=== PATIENT | male | born 1990 | race African-American/Black ===

== ENCOUNTER 2022-03-01 13:32 | Emergency (ER) | payer OTHER ==
[2022-03-01] MEDS ORDERED: TRIA15OI9 TP (14:43)
[2022-03-01] MEDS ORDERED: KETO120S4 TP (14:43)
--- NOTE | 2022-03-01 14:44 | PHYS DOC ---
General Adult EDM: Chief Complaint: SKIN RASH/ABSCESS HPI: HPI: 31-year-old male presents with rash. The patient has a rash on his bilateral lateral buttocks, abdomen, bilateral legs. He states it seems to be increasing over the last few days. It is pruritic. It is mostly flat and with darker pigmented. There are times when it is slightly raised and seems to have a pinkish border. Patient denies fever or chills. He has no idea what is causing it. Denies recent unusual exposures. Patient does have eczema at baseline and is out of his triamcinolone topical cream. He has not had a rash like this before. Review of Systems: Review of Systems: Constitutional: Denies fever or chills Eyes: Denies change in visual acuity HENT: Denies nasal congestion or sore throat Respiratory: Denies cough or shortness of breath Cardiovascular: Denies chest pain or edema GI: Denies abdominal pain, nausea, vomiting, bloody stools or diarrhea : Denies dysuria Musculoskeletal: Denies back pain or joint pain Integument: Rash Neurologic: Denies headache, focal weakness or sensory changes Endocrine: Denies polyuria or polydipsia Lymphatic: Denies swollen glands Psychiatric: Denies depression or anxiety Physical Exam: PE: Constitutional: Well developed, well nourished, no acute distress, non-toxic appearance. [] HENT: Normocephalic, atraumatic, bilateral external ears normal, oropharynx moist, no oral exudates, nose normal. [] Eyes: PERRLA, EOMI, conjunctiva normal, no discharge. [] Neck: Normal range of motion, no tenderness, supple, no stridor. [] Cardiovascular:Heart rate regular rhythm, no murmur [] Lungs & Thorax: Bilateral breath sounds clear to auscultation [] Abdomen: Bowel sounds normal, soft, no tenderness, no masses, no pulsatile masses. [] Skin: Warm, dry, many coalescing macules, darker pigmented, flat of the anterior trunk, bilateral lower extremities, bilateral buttocks. [] Back: No tenderness, no CVA tenderness. [] Extremities: No tenderness, no cyanosis, no clubbing, ROM intact, no edema. [] Neurologic: Alert and oriented X 3, normal motor function, normal sensory function, no focal deficits noted. [] Psychologic: Affect normal, judgement normal, mood normal. [] EKG: EKG: [] Radiology/Procedures: Radiology/Procedures: [] Heart Score: C/O Chest Pain: N/A Risk Factors: Risk Factors: DM, Current or recent (<one month) smoker, HTN, HLP, family history of CAD, obesity. Risk Scores: Score 0 - 3: 2.5% MACE over next 6 weeks - Discharge Home Score 4 - 6: 20.3% MACE over next 6 weeks - Admit for Clinical Observation Score 7 - 10: 72.7% MACE over next 6 weeks - Early Invasive Strategies Course & Med Decision Making: Course & Med Decision Making Pertinent Labs and Imaging studies reviewed. (See chart for details) The patient's exam is consistent with tinea versicolor. I will treat him with ketoconazole shampoo which he will use 3 consecutive days. I will also refill his triamcinolone cream for his eczema. He is stable for discharge at this time. [] Byron Disclaimer: Byron Disclaimer: This electronic medical record was generated, in whole or in part, using a voice recognition dictation system. Departure Departure: Impression: Primary Impression: Tinea versicolor Disposition: HOME / SELF CARE / HOMELESS Condition: STABLE Referrals: PCP,NO (PCP) Patient Instructions: Tinea Versicolor (Yeast Infection of the Skin) Scripts Triamcinolone Acetonide (TRIAMCINOLONE ACETONIDE 0.5% OINT) 15 Gm Oint...g. 1 TANESHA TP PRN TID PRN for rash, #30 GM 0 Refills 1% cream Prov: ALMA GOLDSMITH DO 03/01/22 Ketoconazole (KETOCONAZOLE) 120 Ml Shampoo 1 TANESHA TP DAILY for tinea versicolor for 3 Days, #120 ML 0 Refills Prov: ALMA GOLDSMITH DO 03/01/22 ALMA GOLDSMITH DO March 01, 2022 14:44
== END 2022-03-01 14:55 | disposition home or self-care (01) ==
LOC: ER 13:32
DX: B36.0 Pityriasis versicolor (principal)
CPT/HCPCS: 36415; 87491; 87591; 99283